=== PATIENT | female | born 1990 | race Caucasian/White ===

== ENCOUNTER 2016-05-23 18:28 | Emergency (ER) | payer BC ==
[~2016-05-23] VITALS: Ht 170.2 cm; Wt 70.3 kg
[2016-05-23] MEDS ORDERED: TRAMADOL 50 MG50 MG PO (18:50)
[2016-05-23] MEDS ORDERED: PERCOCET 7.5-31 EACH PO (18:51)
[2016-05-23] MEDS ORDERED: ZANAFLEX4 M1 PO (18:51)
[2016-05-23] MEDS ORDERED: IBUPROFEN 600600 M1 PO (20:37)
[2016-05-23 20:45] VITALS: BP 109/54
== END 2016-05-23 20:46 | disposition home or self-care (01) ==
LOC: ER 18:28
DX: S63.502A Unspecified sprain of left wrist, initial encounter (principal); F17.210 Nicotine dependence, cigarettes, uncomplicated; Z88.1 Allergy status to other antibiotic agents; Z88.8 Allergy status to other drugs, medicaments and biological substances; X58.XXXA Exposure to other specified factors, initial encounter; Y93.89 Activity, other specified; Y92.89 Other specified places as the place of occurrence of the external cause; Y99.9 Unspecified external cause status